=== PATIENT | female | born 1990 | race African-American/Black ===

== ENCOUNTER 2018-10-05 17:04 | Observation (INO) | payer MEDICAID ==
[~2018-10-05] VITALS: Ht 165.1 cm; Wt 58.0 kg
[2018-10-05 17:09] VITALS: BP 125/71
[2018-10-05] MEDS ORDERED: PNV1TABL50 MT (19:53)
[2018-10-05] MEDS ORDERED: ACETAMINOPHEN 500MG TABLET PO SCH (20:00)
== END 2018-10-05 20:16 | disposition home or self-care (01) ==
LOC: ER 17:04 → OB TRIAGE 18:40
PROVIDERS: ADMIT Obstetrics & Gynecology; ATTEND Obstetrics & Gynecology
DX: O99.512 Diseases of the respiratory system complicating pregnancy, second trimester (principal); J06.9 Acute upper respiratory infection, unspecified; J45.909 Unspecified asthma, uncomplicated; R06.02 Shortness of breath; O26.892 Other specified pregnancy related conditions, second trimester; R10.30 Lower abdominal pain, unspecified; Z3A.22 22 weeks gestation of pregnancy
CPT/HCPCS: G0378 ×2; 99281